=== PATIENT | female | born 1995 | race Caucasian/White ===

== ENCOUNTER 2018-10-23 12:43 | Emergency (ER) | payer OTHER ==
--- NOTE | 2018-10-23 14:27 | EDPHY ---
H & P Time Seen by Provider: 10/23/18 13:10 HPI/ROS: CHIEF COMPLAINT: Flank pain HISTORY OF PRESENT ILLNESS: 23-year-old female presents emergency department with recurrent episodes of brief at but severe cramping flank pain that has been occurring for the last several days. Pain is always in the right flank. Does not radiate. Associated with nausea and occasionally with diaphoresis. Patient states that she always gets quite nauseous and near syncopal when she has pain. Of note, approximately 3 weeks ago she had similar flank pain and was seen at an urgent care. At that time she was diagnosed with a kidney stone based on urine findings. She reports that several days later she did see which she thought were kidney stones in her urine. She had several weeks of feeling well until the last 3-4 days of recurrent episodes of brief flank discomfort. Patient does not feel like the pain is musculoskeletal. She reports dancing 3 times this week taking boxing classes without any discomfort in the back or flank area. No dysuria, no fevers or chills, no hematuria, no vomiting, no diarrhea. REVIEW OF SYSTEMS: A comprehensive 10 system review of systems was reviewed and is otherwise negative aside from elements mentioned in the history of present illness and medical decision making. PAST MEDICAL HISTORY: Patient denies. SOCIAL HISTORY: Student at [employer]. From [place]. VITAL SIGNS Reviewed by me. GENERAL: Well-developed, well-nourished, resting comfortably in no respiratory distress. Smiling, laughing, chatting. Looks well. HEENT: Atraumatic. Eyes: No icterus, no injection. Mouth: moist mucous membranes. No erythema or lesions. Neck: supple with no adenopathy. LUNGS: Clear to auscultation bilaterally, no wheezes, rhonchi or rales. CARDIAC: Regular rate and rhythm, no rubs, murmurs or gallops. ABDOMEN: Soft, nontender, nondistended, bowel sounds normal. No right upper quadrant or epigastric discomfort on examination. BACK: Well-localized area of tenderness in the right CVA. Patient states the pain is always in the small "golf ball size" area and does not radiate. EXTREMITIES: No trauma. No edema. Range of motion is normal throughout. NEURO: Alert and oriented, grossly nonfocal. SKIN: Warm and dry, no rash. PSYCHIATRIC: Normal mentation, no agitation. Smoking Status: Never smoked Constitutional: Initial Vital Signs Temperature (C) 37.5 C 10/23/18 13:04 Heart Rate 93 10/23/18 13:04 Respiratory Rate 16 10/23/18 13:04 Blood Pressure 148/93 H 10/23/18 13:04 O2 Sat (%) 96 10/23/18 13:04 O2 Delivery Mode Room Air Allergies/Adverse Reactions: No Known Allergies Allergy (Verified 10/23/18 13:21) Home Medications: Medication Instructions Recorded Albuterol Hfa Anes Only 10/23/18 Fe 24 Tablet 10/23/18 Medical Decision Making - Diagnostics Imaging Results: Imaging Impressions Abdomen/Pelvis CT 10/23/18 13:59 Impression: 1. No nephrolithiasis or hydronephrosis. 2. Constipation. 3. No appendicitis, bowel obstruction or pneumoperitoneum. Attention: This CT examination is specifically designed to evaluate patients who are clinically suspected of having acute obstructive uropathy. This examination does not use radiographic contrast, and as such, provides only a limited evaluation of the abdomen, pelvis and retroperitoneum. If there is further clinical suspicion for pathological conditions other than obstructive uropathy, a complete CT evaluation of the abdomen and pelvis utilizing intravenous, oral, and rectal contrast should be considered. Findings and recommendations discussed with Emergency Department physician, Rosanne Reinoso MD, at 1421 hour, 10/23/2018. Final report concurs with initial preliminary interpretation. Imaging: Discussed imaging studies w/ orthopedically impaired teacher Radiologist ED Course/Re-evaluation: Urinalysis: No blood, no leukocyte esterase, no nitrates. Urine test negative. CT scan without IV contrast to evaluate for residual kidney stones: No kidney stones, normal appendix, significant constipation Discussed results of the urinalysis and CT scan with the patient. Reassured regarding the CT findings of no renal stones. Suspect bowel spasm as cause of pain. Patients urine slightly concentrated; perhaps dehydration leading to both kidney stone constipation. Please see the discharge instructions. Abdominal pain precautions and reasons to return to the emergency department discussed with the patient. Differential Diagnosis: Differential diagnosis of the patient's flank pain was considered including but not limited to musculoskeletal causes, kidney stone, pyelonephritis, shingles, and intra-abdominal causes such as appendicitis, constipation. - Data Points Point of Care Test Results: Urine Collection Date 10/23/18 Collection Time 13:30 HCG Results Negative Urine Dip Collection Date 10/23/18 Collection Time 13:30 Specific [place] (1.002-1.030) 1.020 PH (5.0-7.5) 6.5 Leukocytes (Negative) Negative Nitrites (Negative) Negative Protein (Negative) Negative Glucose (Negative) Negative Ketones (Negative) Negative Urobilnogen (0.2-1.0 EU) 0.2 Bilirubin (Negative) Negative Blood (Negative) Negative Departure - Departure Disposition: Home, Routine, Self-Care Clinical Impression: Acute flank pain Constipation Qualifiers: Constipation type: unspecified constipation type Qualified Code(s): K59.00 - Constipation, unspecified Condition: Good Instructions: Constipation (ED), High Fiber Diet (ED), Flank Pain (ED) Additional Instructions: Your urine is clear. No signs of an infection or blood. Your CT scan shows no remaining kidney stones in the right or left kidney. Your CT scan does demonstrate a significant amount of stool. It is possible that you are having spasms causing flank pain from constipation. I suggest to obtain a bottle of magnesium citrate. Mix half of the bottle with 16 oz of Gatorade. Drink this mixture over 15 min. Weight about 4-6 hours. If you do not have a significant amount of stool output then you may repeat with the remaining magnesium citrate and Gatorade. If you continued to have episodes of flank discomfort, or you develop abdominal discomfort, vomiting, diarrhea, or other concerns, please follow up with the primary care physician. Referrals: NONE *PRIMARY CARE P,. [Primary Care Provider] - As per Instructions Renee Bryson MD [Medical Doctor] - As per Instructions
[2018-10-23 14:53] VITALS: BP 135/91
== END 2018-10-23 14:52 | disposition home or self-care (01) ==
LOC: CED 12:43
DX: K59.00 Constipation, unspecified (principal); R10.9 Unspecified abdominal pain
CPT/HCPCS: 74176-PO; 81025-ER; 99284-ER